=== PATIENT | male | born 1950 | race Hispanic/Latino ===

== ENCOUNTER 2023-03-26 12:13 | Inpatient (IN) | payer OTHER ==
[~2023-03-26] VITALS: Ht 154.9 cm; Wt 98.4 kg
[2023-03-26] MEDS: METOPROLOL TARTRATE 1 MG/ML 5ML VIAL IV ONE (12:35)
[2023-03-26 12:58] LABS: BASOPHILS # (AUTO) 0.12 K/uL (0.00-0.20); BASOPHILS % (AUTO) 0.9 % (0.0-5.0); EOSINOPHILS # (AUTO) 2.33 K/uL (0.00-0.70); EOSINOPHILS % (AUTO) 17.4 % (0.0-8.0); HEMATOCRIT 35.8 % (42-54); IMMATURE GRANULOCYTE ABSOLUTE 0.04 K/uL (0-1); LYMPHOCYTES # (AUTO) 1.9 K/uL (1.0-4.8); MEAN CORPUSCULAR HEMOGLOBIN 26.4 pg (27.0-33.0); MEAN CORPUSCULAR HGB CONC 32.1 g/dL (32.0-36.0); MEAN CORPUSCULAR VOLUME 82.3 fL (79-99); MONOCYTES # (AUTO) 1.3 K/uL (0.1-1.0); MONOCYTES % (AUTO) 9.5 % (3.0-13.0); NEUTROPHILS # (AUTO) 7.7 K/uL (1.8-7.7); NEUTROPHILS % (AUTO) 57.9 % (40.0-77.0); PLATELET COUNT (AUTO) 438 K/uL (130-400); RED BLOOD CELL COUNT(AUTO) 4.35 MIL/uL (4.50-6.20); RED CELL DISTRIBUTION WIDTH 14.6 % (11.0-15.5); WHITE BLOOD COUNT (AUTO) 13.4 K/uL (4.8-10.8)
[2023-03-26 13:08] LABS: CREATININE 1.2 mg/dL (0.5-1.5); POTASSIUM 4.7 mmol/L (3.5-5.1)
[2023-03-26 13:09] LABS: INR 1.01 (0.85-1.15); PROTHROMBIN TIME 11.7 SEC (9.6-11.6)
[2023-03-26 13:10] LABS: ALBUMIN 2.9 g/dL (3.5-5.0); BILIRUBIN,TOTAL 0.3 mg/dL (0.2-1.0); PARTIAL THROMBOPLASTIN TIME 29.7 SEC (26.3-35.5); TOTAL PROTEIN, SERUM 7.9 g/dL (6.0-8.3)
[2023-03-26 13:25] LABS: B-TYPE NATRIURETIC PEPTIDE 401 pg/mL (0-100)
[2023-03-26] MEDS: ENOXAPARIN SODIUM 100 MG/1 ML SQ ONE (13:26)
[2023-03-26] MEDS ORDERED: IPRATROPIUM 0.5 MG/2.5 ML INH IH PRN (15:00)
[2023-03-26] MEDS ORDERED: KCL 20 MEQ ERTAB PO PRN (15:00)
[2023-03-26] MEDS ORDERED: POTASSIUM CHLORIDE 10% ELIXIR 20 MEQ/15 ML UDCUP PO PRN (15:00)
[2023-03-26] MEDS ORDERED: POTASSIUM CHLORIDE 20MEQ/100ML 100 ML IV PRN (15:00)
[2023-03-26] MEDS: ACETAMINOPHEN 325 MG TAB PO SCH (15:18)
[2023-03-26] MEDS: DOXYCYCLINE HYCLATE 100 MG TABLET PO SCH (15:18)
[2023-03-26] MEDS: PANTOPRAZOLE 40 MG TAB DR PO SCH (15:18)
[2023-03-26] MEDS: CEFTRIAXONE 1G VIAL IVPB SCH (15:18)
[2023-03-26 15:35] VITALS: BP 136/85; PULSE 82; RESP 18
[2023-03-26 15:45] LABS: SARS-CoV-2, RNA, NAAT NEGATIVE SARS CoV-2 (NEGATIVE)
[2023-03-26 15:52] LABS: INFLUENZA TYPE A Negative For Type A (NEGATIVE); INFLUENZA TYPE B Negative For Type B (NEGATIVE)
[2023-03-26 16:00] LABS: THYROID STIMULATING HORMONE 1.41 uIU/mL (0.36-3.74)
[2023-03-26 16:41] LABS: HEMOGLOBIN A1C 6.3 % (4.0-6.0)
[2023-03-26] MEDS: FUROSEMIDE 20MG VIAL IV SCH (16:54)
[2023-03-26] MEDS: METOPROLOL TARTRATE 25 MG TAB PO SCH (16:54)
[2023-03-26] MEDS: LIDOCAINE 5% TOPICAL PATCH TP ONE (18:18)
[2023-03-26 18:58] LABS: APPEARANCE,URINE CLEAR (CLEAR); BILIRUBIN,URINE NEGATIVE (NEGATIVE); COLOR,URINE COLORLESS (YELLOW); GLUCOSE, URINE (UA) NEGATIVE (NEGATIVE); KETONES,URINE NEGATIVE (NEGATIVE); LEUKOCYTE ESTERASE ,URINE NEGATIVE Leu/uL (NEGATIVE); NITRATE,URINE NEGATIVE (NEGATIVE); OCCULT BLOOD,URINE NEGATIVE (NEGATIVE); PH,URINE 5.5 (5.0-8.0); PROTEIN,URINE 10 mg/dL (NEGATIVE); UROBILINOGEN,URINE 0.2 mg/dL (0.2-1.0)
[2023-03-26 19:00] LABS: ADD UA MICROSCOPIC YES
[2023-03-26 19:01] LABS: BACTERIA,URINE RARE /HPF (None Seen); RBC,URINE 0-1 /HPF (0-1); WBC,URINE 0-1 /HPF (0-1)
[2023-03-26 19:05] LABS: AMPHET/METH SCREEN,URINE NEGATIVE (NEGATIVE); BARBITURATE SCREEN, URINE NEGATIVE (NEGATIVE); BENZODIAZEPINES SCREEN,URINE NEGATIVE (NEGATIVE); CANNABINOID SCREEN,URINE NEGATIVE (NEGATIVE); COCAINE SCREEN,URINE NEGATIVE (NEGATIVE); OPIATE SCREEN,URINE NEGATIVE (NEGATIVE); PHENCYCLIDINE SCREEN,URINE NEGATIVE (NEGATIVE)
[2023-03-26 19:53] VITALS: BP 114/72; PULSE 82; RESP 18
[2023-03-26 20:52] LABS: CREATININE 1.5 mg/dL (0.5-1.5)
[2023-03-26 20:55] VITALS: PULSE 73; RESP 20; O2SAT 99
[2023-03-26] MEDS: BUDESONIDE 0.5 MG/2 ML INH IH SCH (20:58)
[2023-03-26] MEDS: SODIUM CHLORIDE 3% FOR INHALATION 4 ML/AMP VIAL.NEB IH ONE (21:02)
[2023-03-26 23:59] VITALS: BP 118/76; PULSE 84; RESP 18
[2023-03-27] VITALS (9 sets, daily range): BP systolic 135–152; BP diastolic 72–89; PULSE 66–87; RESP 16–20; O2SAT 95–97
[2023-03-27 03:41] LABS: BASOPHILS % (AUTO) 0.9 % (0.0-5.0); EOSINOPHILS % (AUTO) 22.8 % (0.0-8.0); HEMATOCRIT 32.8 % (42-54); IMMATURE GRANULOCYTE ABSOLUTE 0.03 K/uL (0-1); LYMPHOCYTES # (AUTO) 2.5 K/uL (1.0-4.8); MEAN CORPUSCULAR HEMOGLOBIN 26.4 pg (27.0-33.0); MEAN CORPUSCULAR HGB CONC 32.6 g/dL (32.0-36.0); MEAN CORPUSCULAR VOLUME 80.8 fL (79-99); MONOCYTES # (AUTO) 1.1 K/uL (0.1-1.0); MONOCYTES % (AUTO) 10.3 % (3.0-13.0); NEUTROPHILS # (AUTO) 4.7 K/uL (1.8-7.7); NEUTROPHILS % (AUTO) 42.7 % (40.0-77.0); PLATELET COUNT (AUTO) 439 K/uL (130-400); RED BLOOD CELL COUNT(AUTO) 4.06 MIL/uL (4.50-6.20); RED CELL DISTRIBUTION WIDTH 14.6 % (11.0-15.5)
[2023-03-27 04:01] LABS: B-TYPE NATRIURETIC PEPTIDE 244 pg/mL (0-100)
[2023-03-27 04:04] LABS: ALBUMIN 2.7 g/dL (3.5-5.0); BILIRUBIN,TOTAL 0.2 mg/dL (0.2-1.0); CREATININE 1.3 mg/dL (0.5-1.5); MAGNESIUM 1.9 mg/dL (1.80-2.40); TOTAL PROTEIN, SERUM 7.6 g/dL (6.0-8.3)
[2023-03-27] MEDS: MAGNESIUM 2GM PREMIX 50ML 50 ML IV SCH (05:37)
[2023-03-27] MEDS: FUROSEMIDE 20MG VIAL IV SCH (09:11)
[2023-03-27] MEDS: ASPIRIN 81MG CHEW TAB PO SCH (09:18)
[2023-03-27] MEDS: ISOSORBIDE MONO 30MG SR TAB PO SCH (15:10)
[2023-03-27] MEDS: SODIUM CHLORIDE 3% FOR INHALATION 4 ML/AMP VIAL.NEB IH ONE (16:57)
[2023-03-28] VITALS (12 sets, daily range): BP systolic 115–141; BP diastolic 72–83; PULSE 55–88; RESP 16–20; O2SAT 97–99
[2023-03-28 04:04] LABS: BASOPHILS # (AUTO) 0.11 K/uL (0.00-0.20); EOSINOPHILS # (AUTO) 2.55 K/uL (0.00-0.70); EOSINOPHILS % (AUTO) 22.9 % (0.0-8.0); HEMATOCRIT 32.9 % (42-54); IMMATURE GRANULOCYTE ABSOLUTE 0.03 K/uL (0-1); LYMPHOCYTES # (AUTO) 2.1 K/uL (1.0-4.8); LYMPHOCYTES % (AUTO) 18.6 % (21.0-51.0); MEAN CORPUSCULAR HEMOGLOBIN 26.2 pg (27.0-33.0); MEAN CORPUSCULAR HGB CONC 32.2 g/dL (32.0-36.0); MEAN CORPUSCULAR VOLUME 81.2 fL (79-99); MONOCYTES % (AUTO) 8.5 % (3.0-13.0); NEUTROPHILS # (AUTO) 5.4 K/uL (1.8-7.7); NEUTROPHILS % (AUTO) 48.7 % (40.0-77.0); PLATELET COUNT (AUTO) 485 K/uL (130-400); RED BLOOD CELL COUNT(AUTO) 4.05 MIL/uL (4.50-6.20); RED CELL DISTRIBUTION WIDTH 14.5 % (11.0-15.5); WHITE BLOOD COUNT (AUTO) 11.1 K/uL (4.8-10.8)
[2023-03-28 04:18] LABS: CREATININE 1.3 mg/dL (0.5-1.5); MAGNESIUM 1.9 mg/dL (1.80-2.40); PHOSPHORUS 3.9 mg/dL (2.5-4.9); POTASSIUM 4.2 mmol/L (3.5-5.1)
[2023-03-28] MEDS: APIXABAN 5 MG TABLET PO SCH (11:47)
[2023-03-29] VITALS (7 sets, daily range): BP systolic 123–131; BP diastolic 73–84; PULSE 64–92; RESP 18–20; O2SAT 98–99
[2023-03-29 03:51] LABS: BASOPHILS % (AUTO) 0.9 % (0.0-5.0); EOSINOPHILS # (AUTO) 2.78 K/uL (0.00-0.70); EOSINOPHILS % (AUTO) 24.5 % (0.0-8.0); HEMATOCRIT 33.6 % (42-54); IMMATURE GRANULOCYTE ABSOLUTE 0.04 K/uL (0-1); LYMPHOCYTES # (AUTO) 1.9 K/uL (1.0-4.8); LYMPHOCYTES % (AUTO) 16.5 % (21.0-51.0); MEAN CORPUSCULAR HEMOGLOBIN 26.5 pg (27.0-33.0); MEAN CORPUSCULAR HGB CONC 32.1 g/dL (32.0-36.0); MEAN CORPUSCULAR VOLUME 82.4 fL (79-99); MONOCYTES # (AUTO) 0.9 K/uL (0.1-1.0); MONOCYTES % (AUTO) 7.5 % (3.0-13.0); NEUTROPHILS # (AUTO) 5.7 K/uL (1.8-7.7); NEUTROPHILS % (AUTO) 50.2 % (40.0-77.0); PLATELET COUNT (AUTO) 453 K/uL (130-400); RED BLOOD CELL COUNT(AUTO) 4.08 MIL/uL (4.50-6.20); RED CELL DISTRIBUTION WIDTH 14.2 % (11.0-15.5); WHITE BLOOD COUNT (AUTO) 11.4 K/uL (4.8-10.8)
[2023-03-29 04:04] LABS: CREATININE 1.2 mg/dL (0.5-1.5); POTASSIUM 4.1 mmol/L (3.5-5.1)
[2023-03-29] MEDS: LEVOFLOXACIN 750 MG TABLET PO SCH (09:21)
[2023-03-29] MEDS ORDERED: APIX5TAB PO (12:31)
[2023-03-29] MEDS ORDERED: METO25 PO (12:31)
[2023-03-29] MEDS ORDERED: ASPI-1005 PO (12:31)
[2023-03-29] MEDS ORDERED: LEVO750T68 PO (12:31)
[2023-03-29] MEDS ORDERED: Isosorbide Mono 30MG Sr Tab PO (12:31)
== END 2023-03-29 14:45 | disposition home or self-care (01) | DRG 291 ==
LOC: EDH 12:13 → EDHIP 12:14 → 2AH 16:27
PROVIDERS: ADMIT Internal Medicine; ATTEND Internal Medicine
DX: I13.0 Hypertensive heart and chronic kidney disease with heart failure and stage 1 through stage 4 chronic kidney disease, or unspecified chronic kidney disease (principal); J18.9 Pneumonia, unspecified organism; Z59.01 Sheltered homelessness; I48.91 Unspecified atrial fibrillation; I50.9 Heart failure, unspecified; Z20.822 Contact with and (suspected) exposure to COVID-19; E66.9 Obesity, unspecified; I73.9 Peripheral vascular disease, unspecified; E78.00 Pure hypercholesterolemia, unspecified; N18.30 Chronic kidney disease, stage 3 unspecified; J20.9 Acute bronchitis, unspecified; Z79.899 Other long term (current) drug therapy
CPT/HCPCS: 36415; 71045; 73502; 80048; 80053; 80305; 81001; 82550; 82948; 83036; 83735; 83874; 83880; 84100; 84145; 84439; 84443; 84481; 84484; 85025; 85610; 85651; 85730; 86140; 87635; 87804; 93005; 93306; 93356; 93926; 94640; 94664; G0378; J0696; J1650; J1940; J3475; J3490